=== PATIENT | male | born 1965 | race Caucasian/White ===

== ENCOUNTER 2017-10-07 00:39 | Emergency (ER) | payer OTHER ==
[~2017-10-07] VITALS: Ht 187.9 cm; Wt 108.9 kg
[~2017-10-07 00:39] MED LIST: CELEXA40 MG PO; FLEXERIL10 MG PO; FLEXERIL5 MG PO; GABARONE300 MG PO; HYDROCODONE BIT1 T11 PO; LYRICA25 MG; MOTRIN600 MG PO; PREDNICOT20 MG PO; PREDNISONE10 MG PO; SOMA350 MG PO; TRAMADOL HCL50 MG PO; TYLENOL W/CODEI1 TA2 PO; VICODIN 5/500 505 MG PO; VICODIN ES 7501 TAB PO; VOLTAREN75 MG PO
== END 2017-10-07 01:24 | disposition home or self-care (01) ==
LOC: ED 00:39
DX: S60.221A Contusion of right hand, initial encounter (principal); W22.01XA Walked into wall, initial encounter; Y93.89 Activity, other specified; Y92.89 Other specified places as the place of occurrence of the external cause; Y99.8 Other external cause status